=== PATIENT | male | born 1995 | race African-American/Black ===

== ENCOUNTER 2021-03-04 16:31 | Emergency (ER) | payer OTHER, SELFPAY ==
--- NOTE | 2021-03-04 20:49 | RAD REPORT ---
EXAM DESCRIPTION: RAD - Knee Right 3 View - 03/04/2021 8:01 pm CLINICAL HISTORY: knee injury COMPARISON: No comparison FINDINGS: Right knee three view examination performed. Lateral view is not optimally positioned. No fracture, dislocation or periosteal reaction.Moderate-sized joint effusion is present. No joint sp sulema narrowing. Soft tissues anterior to the patellar tendon are prominent. Patella is normally positi oned. No foreign body in the soft tissues. IMPRESSION: Moderate joint effusion with no acute bone finding identified. Clinical concerns for internal derangement or occult bony injury could be further assessed with MR im aging.
--- NOTE | 2021-03-04 21:12 | EDPHYS ---
Physician Documentation [facility] Name: Vijay Griffin Jr Age: 25 yrs Sex: Male : 1995 Arrival Date: 03/04/2021 Time: 16:32 Bed 18 Private MD: ED Physician Horace Marquez HPI: 03/04 20:16 This 25 yrs old Black Male presents to ER via Ambulatory with complaints of Knee Injury.jmm 20:16 The patient presents with an injury, pain. Onset: The symptoms/episode began/occurred jmm acutely, 2 day(s) ago. Modifying factors: The symptoms are alleviated by nothing. the symptoms are aggravated by movement, weight bearing, bending knee. Associated signs and symptoms: Pertinent positives: pain. The patient has experienced a previous episode. This is a 25 year old male with no chronic medical conditions that presents to the ED with complaints of right lateral knee pain which occurred 2 days prior while playing football. Patient states he felt a pop as he jumped. Denies no other known injury. . Historical: - Allergies: 16:55 No Known Allergies; ca1 - Home Meds: 16:55 None [Active]; ca1 - PMHx: 16:55 None; ca1 - PSHx: 16:55 None; ca1 - Immunization history:: Adult Immunizations not up to date. - Social history:: Smoking status: Patient denies any tobacco usage or history of. ROS: 20:16 Constitutional: Negative for fever, chills, and weight loss, Cardiovascular: Negative jmm for chest pain, palpitations, and edema, Respiratory: Negative for shortness of breath, cough, wheezing, and pleuritic chest pain. 20:16 MS/extremity: Positive for injury or acute deformity. 20:16 All other systems are negative. Exam: 20:16 Constitutional: This is a well developed, well nourished patient who is awake, alert, jmm and in no acute distress. Head/Face: atraumatic. Eyes: EOMI, no conjunctival erythema appreciated ENT: Moist Mucus Membranes Neck: Trachea midline, Supple Chest/axilla: Normal chest wall appearance and motion. Cardiovascular: Regular rate and rhythm. No edema appreciated Respiratory: Normal respirations, no respiratory distress appreciated Abdomen/GI: Non distended, soft Back: Normal ROM Skin: General appearance color normal 20:16 Musculoskeletal/extremity: right lateral knee pain, compartments are soft, NVI. 20:16 Skin: Appearance: Color: normal in color. 20:16 Neuro: Orientation: is normal, Mentation: is normal, Memory: is normal. 20:16 Psych: Behavior/mood is pleasant, cooperative. Vital Signs: 16:53 BP 126 / 78; Pulse 65; Resp 16 S; Temp 98.4(TE); Pulse Ox 100% on R/A; Weight 63.5 kg ca1 (R); Height 5 ft. 6 in. (167.64 cm) (R); Pain 7/10; 20:09 BP 122 / 60; Pulse 60; Resp 18; Pulse Ox 98% on R/A; ea 16:53 Body Mass Index 22.60 (63.50 kg, 167.64 cm) ca1 MDM: 19:15 Patient medically screened. [facility] 21:10 Data reviewed: vital signs, nurses notes. Counseling: I had a detailed discussion with [facility] the patient and/or guardian regarding: the historical points, exam findings, and any diagnostic results supporting the discharge/admit diagnosis, radiology results, the need for outpatient follow up, to return to the emergency department if symptoms worsen or persist or if there are any questions or concerns that arise at home. ED course: Xray negative for fracture. Patient is advised to follow up with ortho for reevaluation. patient is otherwise given strict return precautions. patient understood and agrees with the plan of care. . 03/04 19:30 Order name: Knee Right 3 View XRAY; Complete Time: 20:55 [facility] 03/04 20:35 Order name: Knee Immobilizer; Complete Time: 21:05 [facility] 03/04 21:05 Order name: Crutches; Complete Time: 21:05 [facility] Administered Medications: No medications were administered Disposition: 03/04/21 21:12 Discharged to Home. Impression: Internal derangement of knee. - Condition is Stable. - Discharge Instructions: Knee Pain. - Prescriptions for Ibuprofen 800 mg Oral Tablet - take 1 tablet by ORAL route every 8 hours As needed take with food; 30 tablet. - Work release form, Medication Reconciliation Form, Thank You Letter, Antibiotic Education, Prescription Opioid Use form. - Follow up: Joel Amor MD; When: 2 - 3 days; Reason: Recheck today's complaints, Continuance of care, Re-evaluation by your physician. Follow up: Adalberto Nunez MD; When: 2 - 3 days; Reason: Recheck today's complaints, Continuance of care, Re-evaluation by your physician. Follow up: Leonidas Fontanez MD; When: 2 - 3 days; Reason: Recheck today's complaints, Continuance of care, Re-evaluation by your physician. Addendum: 03/06/2021 06:41 Co-signature as Attending Physician, Horace Marquez MD I agree with the assessment and c broussard plan of care. PA/TRAFFIC ANALYST's history reviewed, patient interviewed, and examined. Signatures: Dispatcher [employer] EDMS Horace Marquez MD MD cha Mickail, Joel, PA PA jmm Antunez, Elena, RN RN ea Acob, Cheryl RN BRITTNEY [facility] Navid Venegas [facility] Corrections: (The following items were deleted from the chart) 03/04 21:18 21:12 03/04/2021 21:12 Discharged to Home. Impression: Internal derangement of knee. ea Condition is Stable. Forms are Medication Reconciliation Form, Thank You Letter, Antibiotic Education, Prescription Opioid Use. Follow up: Joel Amor; When: 2 - 3 days; Reason: Recheck today's complaints, Continuance of care, Re-evaluation by your physician. Follow up: Dr. Adalberto Nunez; When: 2 - 3 days; Reason: Recheck today's complaints, Continuance of care, Re-evaluation by your physician. Follow up: Leonidas Fontanez; When: 2 - 3 days; Reason: Recheck today's complaints, Continuance of care, Re-evaluation by your physician. [facility]
--- NOTE | 2021-03-04 21:12 | ER ---
Nurse's Notes [facility] Name: Vijay Griffin Jr Age: 25 yrs Sex: Male : 1995 Arrival Date: 03/04/2021 Time: 16:32 Bed 18 Private MD: Diagnosis: Internal derangement of knee Presentation: 03/04 16:53 Chief complaint: Patient states: Was playing football Thursday, when I jumped I heard a ca1 pop on my R knee. I think I tore my ligament on the R knee again. I tore it 4 years ago. Coronavirus screen: Client denies travel out of the [place] in the last 14 days. At this time, the client does not indicate any symptoms associated with coronavirus-19. Ebola Screen: Patient negative for fever greater than or equal to 101.5 degrees Fahrenheit, and additional compatible Ebola Virus Disease symptoms Patient denies exposure to infectious person. Patient denies travel to an Ebola-affected area in the 21 days before illness onset. No symptoms or risks identified at this time. 16:53 Method Of Arrival: Ambulatory ca1 16:53 Initial Sepsis Screen: Does the patient meet any 2 criteria? No. Patient's initial ca1 sepsis screen is negative. Does the patient have a suspected source of infection? No. Patient's initial sepsis screen is negative. Risk Assessment: Do you want to hurt yourself or someone else? Patient reports no desire to harm self or others. Onset of symptoms was March 04, 2021. 16:53 Acuity: DENISSE 4 ca1 Historical: - Allergies: 16:55 No Known Allergies; ca1 - Home Meds: 16:55 None [Active]; ca1 - PMHx: 16:55 None; ca1 - PSHx: 16:55 None; ca1 - Immunization history:: Adult Immunizations not up to date. - Social history:: Smoking status: Patient denies any tobacco usage or history of. Screenin:51 Abuse screen: Denies threats or abuse. Nutritional screening: No deficits noted. ea Tuberculosis screening: No symptoms or risk factors identified. Fall Risk None identified. Assessment: 19:30 General: Appears in no apparent distress. Behavior is calm, cooperative, appropriate ea for age. Pain: Complains of pain in right leg. Neuro: Level of Consciousness is awake, alert, obeys commands, Oriented to person, place, time. Cardiovascular: Patient's skin is warm and dry. Respiratory: Airway is patent Respiratory effort is even, unlabored, Respiratory pattern is regular, symmetrical. Derm: Skin is pink, warm \T\ dry. 20:09 Reassessment: Awaiting on X-ray results. ea 21:12 Reassessment: Patient and/or family updated on plan of care and expected duration. Pain ea level reassessed. Patient is alert, oriented x 3, equal unlabored respirations, skin warm/dry/pink. Discharge instruction given to patient verbalized the understanding of instruction. Pt left ED ambulatory tolerating well. Vital Signs: 16:53 BP 126 / 78; Pulse 65; Resp 16 S; Temp 98.4(TE); Pulse Ox 100% on R/A; Weight 63.5 kg ca1 (R); Height 5 ft. 6 in. (167.64 cm) (R); Pain 7/10; 20:09 BP 122 / 60; Pulse 60; Resp 18; Pulse Ox 98% on R/A; ea 16:53 Body Mass Index 22.60 (63.50 kg, 167.64 cm) ca1 ED Course: 16:32 Patient arrived in ED. as 16:55 Triage completed. ca1 16:55 Arm band placed on right wrist. ca1 18:38 Keyon Sheppard PA is PHCP. jmm 18:38 Horace Marquez MD is Attending Physician. jmm 19:50 Mi Ventura, BRITTNEY is Primary Nurse. ea 19:51 Patient has correct armband on for positive identification. Bed in low position. Call ea light in reach. 20:01 Knee Right 3 View XRAY In Process Unspecified. EDMS 21:11 Joel Amor MD is Referral Physician. jmm 21:11 Adalberto Nunez MD is Referral Physician. jmm 21:11 Leonidas Fontanez MD is Referral Physician. jmm 21:12 No provider procedures requiring assistance completed. Patient did not have IV access ea during this emergency room visit. Administered Medications: No medications were administered Outcome: 21:12 Discharge ordered by . jmm 21:12 Discharged to home with crutches, with family. ea 21:12 Condition: stable 21:12 Discharge instructions given to patient, Instructed on discharge instructions, follow up and referral plans. medication usage, Demonstrated understanding of instructions, follow-up care, medications. 21:18 Patient left the ED. ea Signatures: Dispatcher [employer] EDMS Keyon Sheppard PA PA jmm Martinez, Amelia as Antunez, Elena, RN RN Jennifer Bonilla RN RN ca1
[2021-03-04 21:23] VITALS: TEMP 98.4
[2021-03-04 21:24] VITALS: BP 122/60; O2SAT 98
== END 2021-03-04 21:18 | disposition home or self-care (01) ==
LOC: ER 16:31
DX: M23.91 Unspecified internal derangement of right knee (principal); X58.XXXA Exposure to other specified factors, initial encounter; Y93.61 Activity, american tackle football; Y92.9 Unspecified place or not applicable
CPT/HCPCS: 99283